=== PATIENT | female | born 1970 | race Caucasian/White ===

== ENCOUNTER → 2017-01-16 | Day surgery (SDC) | payer OTHER ==
[~2017-01-16] VITALS: Ht 165.1 cm; Wt 61.2 kg
[~2017-01-16] MED LIST: BENADRYL25 MG PO; LISINOPRIL-HCT1 EAC2 PO
--- NOTE | 2017-01-16 10:41 | MAMMOGRAPHY REPORT ---
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 COMPARISON: Ultrasound guided biopsy and post procedure mammogram dated 11/27/2016. Ultrasound and mammogram dated 11/21/2016. TECHNIQUE NEEDLE LOC: Proper informed consent is obtained from the patient after discussion of the procedure, potential risks and complications, and alternatives including declining the procedure today. Patient was given an opportunity for questions. The patient appeared to understand. The patient consented to the procedure and signed the consent form. GUIDANCE: Digital mammography. APPROACH: Superior. TARGET: Biopsy clip in the 12:00 position of the left breast. ANESTHESIA: 10 mL Xylocaine 2%. LOCALIZATION MARKER: SupportBee 5 cm needle localization system. The skin was prepped and local anesthesia administered. The needle was positioned and position assessed with mammography. The wire was hooked into position. The patient tolerated the procedure well and had no immediate complication. Diagram was marked for the surgeon. The target is a biopsy clip centered at the thick segment of the wire, 2 cm deep to the skin with 10.5 cm of the wire remaining external to the skin. IMPRESSION: Status post left breast needle localization with wire hooked into position. The target is a biopsy clip centered at the thick segment of the wire, 2 cm deep to the skin with 10.5 cm of the wire remaining external to the skin.
--- NOTE | 2017-01-16 14:08 | Operative Report ---
Operative/Inv Procedure Report Surgery Date: 01/16/17 Name of Procedure: Left breast biopsy with wire localization Pre-Operative Diagnosis: Left sclerosing papillary lesion Post-Operative Diagnosis: Same Estimated Blood Loss: scant Surgeon/Biometrics Head: HARRIS CLAUDIO MD Anesthesia: local monitored anesthesi Specimens: Left breast biopsy Operative/Procedure Note Note: Patient brought to the operating room on 01/16/2017 after preoperative wire localization was performed and the films were reviewed. Incision was planned. 2 g of Ancef was given. The patient had had a reaction to preoperative clans and therefore Betadine was used to prep and drape the left breast. Local anesthesia of 1% lidocaine mixed half percent Marcaine was given and a curvilinear incision was made in the periareolar region. The wire was brought into the incision and the area of concern was grasped using an Allis clamp. Specimen was removed. Specimen was marked for orientation using margin map. Intraoperative x-ray confirmed the presence of the clip in the specimen. Hemostasis was adequate. Deep tissue was approximated using interrupted Vicryl sutures. Oozing a running Biosyn subcutaneous color stitch. Surgicel sterile dressings were applied, and the patient was transferred to the recovery room in satisfactory condition having tolerated the procedure well.
--- NOTE | 2017-01-16 16:09 | MAMMOGRAPHY REPORT ---
EXAMINATION: MM NEEDLE LOCALIZATION SPECIMEN BREAST, LEFT CLINICAL INFORMATION: Excision of left breast complex sclerosing lesion. COMPARISON: Preoperative needle localization films from earlier today. TECHNIQUE SPECIMEN RADIOGRAPH: Single radiograph of the excised breast tissue is performed. FINDINGS SPECIMEN RADIOGRAPH: The specimen shows the needle and hookwire are delivered intact. The biopsy clip marker is identified in the specimen. Results were called to Dr. Farfan in the operating room at the time of imaging 01/16/2017, 1:51 PM. IMPRESSION: Postoperative specimen radiograph shows excision of the targeted clip and the localization wire.
== END ==
LOC: STS 01:36 → CBW.IIU 09:30 → STS 09:30 → CBW.MAMMO 10:00
DX: D24.2 Benign neoplasm of left breast (principal); I10 Essential (primary) hypertension; Z85.828 Personal history of other malignant neoplasm of skin
CPT/HCPCS: 81025; 88307; J0690; J2001; J2250